=== PATIENT | male | born 1940 | race Two or more races ===

== ENCOUNTER 2021-08-05 17:52 | Inpatient (IN) | payer BC ==
[~2021-08-05] VITALS: Ht 165.1 cm; Wt 61.7 kg
[2021-08-05] MEDS ORDERED: CEFEPIME HCL 1 G in IV DEXTROSE 5% 50 ML IV ONE (18:45)
[2021-08-05] MEDS ORDERED: CEFEPIME HCL 1 G VIAL ONE (18:51)
[2021-08-05 18:52] LABS: HEMATOCRIT 47.2 % (36.7-47.1); MEAN CORPUSCULAR HEMOGLOBIN 26.7 uug (23.8-33.4); MEAN CORPUSCULAR VOLUME 79.9 fL (73.0-96.2); PLATELET COUNT (AUTO) 186 K/uL (152-348)
[2021-08-05] MEDS ORDERED: LORA-259 PO (18:53)
[2021-08-05] MEDS ORDERED: VITA-287 PO (18:53)
[2021-08-05] MEDS ORDERED: D3 PO (18:54)
[2021-08-05] MEDS ORDERED: KRIL500C PO (18:54)
[2021-08-05] MEDS ORDERED: EZET10TA15 PO (18:54)
[2021-08-05] MEDS ORDERED: LEVO75TA PO (18:54)
[2021-08-05] MEDS ORDERED: APIX5TAB4 PO (18:54)
[2021-08-05] MEDS ORDERED: ONDA4TAB5 PO (18:54)
[2021-08-05] MEDS ORDERED: GLUC1TAB9 PO (18:54)
[2021-08-05] MEDS ORDERED: IBUP-1957 PO (18:54)
[2021-08-05] MEDS ORDERED: THIAZIDE PO (18:54)
[2021-08-05] MEDS ORDERED: MECL-225 PO (18:54)
[2021-08-05] MEDS ORDERED: NITR0.4T48 SL (18:54)
[2021-08-05] MEDS ORDERED: MULT-1201 PO (18:54)
[2021-08-05] MEDS ORDERED: NYST15CR2 TP (18:54)
[2021-08-05] MEDS ORDERED: NAPR220C15 PO (18:54)
[2021-08-05] MEDS ORDERED: SOTA80TA PO (18:54)
[2021-08-05] MEDS ORDERED: ENAL20TA70 PO (18:54)
[2021-08-05] MEDS ORDERED: GUAI1TBM19 PO (18:54)
[2021-08-05] MEDS ORDERED: POTASSIUM CL (18:54)
[2021-08-05] MEDS ORDERED: PSYL0.5211 PO (18:54)
[2021-08-05] MEDS ORDERED: VANCOMYCIN IV 1,000 MG in IV DEXTROSE 5% 250 ML IV ONE (19:00)
[2021-08-05] MEDS ORDERED: IV NORMAL SALINE 1000 ML BAG IV ONE (19:00)
[2021-08-05] MEDS ORDERED: DOXYCYCLINE HYCLATE IV 100 MG in IV DEXTROSE 5% 100 ML IV ONE (19:00)
[2021-08-05 19:04] LABS: CREATININE 1.1 mg/dL (0.6-1.3); POTASSIUM 3.5 mmol/L (3.5-5.1)
--- NOTE | 2021-08-05 19:05 | NUR ---
RECEIVED REPORT FROM RJ LIZ.
[2021-08-05 19:09] LABS: BILIRUBIN,TOTAL 0.9 mg/dL (0.2-1.0); TOTAL PROTEIN, SERUM 7.6 g/dL (6.4-8.2)
[2021-08-05 19:29] LABS: BILIRUBIN,DIRECT 0.3 mg/dL (0.0-0.2); BILIRUBIN,TOTAL 0.9 mg/dL (0.2-1.0); MAGNESIUM 1.5 mg/dL (1.8-2.4); PHOSPHOROUS 3.3 mg/dL (2.5-4.9)
[2021-08-05 19:31] LABS: THYROID STIMULATING HORMONE 0.547 mIU/mL (0.358-3.740)
[2021-08-05] MEDS ORDERED: DOXYCYCLINE HYCLATE 100 MG INJ IV ONE (19:37)
[2021-08-05] MEDS ORDERED: VANCOMYCIN IV 200 ML ONE (19:37)
[2021-08-05] MEDS ORDERED: ACETAMINOPHEN 650 MG SUPP.RECT RC ONE (20:30)
[2021-08-05] MEDS ORDERED: ACETAMINOPHEN ES 500 MG TABLET PO ONE (20:30)
[2021-08-05] MEDS ORDERED: ACETAMINOPHEN ES 500 MG TABLET ONE (20:34)
[2021-08-05] MEDS ORDERED: MAGNESIUM SULFATE/D5W 200 ML ONE (20:35)
[2021-08-05] MEDS: MAGNESIUM SULFATE/D5W 100 ML IV SCH ×2 (20:35→21:25)
--- NOTE | 2021-08-05 20:51 | NUR ---
Patient is resting comfortably in bed with eyes closed.
[2021-08-05 20:53] LABS: *BILIRUBIN,URIN NEGATIVE (NEGATIVE); *BLOOD, URINE 2+ (NEGATIVE); *COLOR,URINE YELLOW (YELLOW); *KETONES,URINE NEGATIVE (NEGATIVE); *UROBILINOGEN,URINE 0.2 E.U./dl (NORMAL); LEUKOCYTE ESTERASE ,URINE 1+ (NEGATIVE); NITRITE, URINE POSITIVE (NEGATIVE); PH,URINE 5.5 (5.0-8.0); UGLUCOSE NEGATIVE (NEGATIVE)
[2021-08-05 20:58] LABS: *CLARITY,URINE SLIGHTLY CLOUDY (CLEAR); BACTERIA,URINE FEW /HPF (NONE SEEN); RBC,URINE 50-80 /HPF (0-3); SQUAMOUS EPITHELIAL CELL,UR FEW /HPF (NONE SEEN); WBC,URINE 20-50 /HPF (0-3)
[2021-08-05] MEDS ORDERED: Z GUARD REMEDY PASTE 57 GM TUBE TOP PRN (21:00)
[2021-08-05] MEDS ORDERED: ONDANSETRON 4 MG/2 ML VIAL IV PRN (21:00)
[2021-08-05] MEDS ORDERED: MAGNESIUM HYDROXIDE 30 ML LIQUID UDC PO PRN (21:00)
--- NOTE | 2021-08-05 21:59 | NUR ---
GAVE REPORT TO RJ BOYKIN.
--- NOTE | 2021-08-05 22:30 | NUR ---
Pt. admitted to TELE 302 , under care of Dr. JULIO DX: SEPSIS/PNA Belongs List completed
[2021-08-05 22:45] VITALS: BP 130/73
[2021-08-05] MEDS ORDERED: PIPERACILLIN/TAZOBACTAM/D5W 100 ML IV ONE (23:19)
[2021-08-05] MEDS: PIPERACILLIN SODIUM/TAZOBACTAM 3.375 G in IV DEXTROSE 5% 50 ML IV SCH (23:30)
[2021-08-05] MEDS: IV NS 1000 ML 1,000 ML IV PRN (23:31)
--- NOTE | 2021-08-06 01:00 | NUR ---
referred pt to Dr Santos regarding pt's urine being hematuric; pt initially placed on condom cath but pt removed it; also pt has been uncooperative and pulling lines; mittens ordered;
[2021-08-06 04:00] VITALS: BP_SYST 127; BP_SYST 173; BP_DIAS 60; BP_DIAS 91
[2021-08-06] MEDS: PIPERACILLIN SODIUM/TAZOBACTAM 3.375 G in IV DEXTROSE 5% 50 ML IV SCH (05:06)
[2021-08-06] MEDS: LEVOTHYROXINE SODIUM 75 MCG TABLET PO SCH (05:59)
[2021-08-06] MEDS: ONDANSETRON HCL 4 MG TABLET PO SCH ×3 (05:59→11:01)
[2021-08-06 06:48] LABS: HEMATOCRIT 41.3 % (36.7-47.1); MEAN CORPUSCULAR HEMOGLOBIN 26.8 uug (23.8-33.4); MEAN CORPUSCULAR VOLUME 80.1 fL (73.0-96.2); PLATELET COUNT (AUTO) 153 K/uL (152-348)
[2021-08-06 07:09] LABS: PHOSPHOROUS 3.4 mg/dL (2.5-4.9); POTASSIUM 3.2 mmol/L (3.5-5.1)
--- NOTE | 2021-08-06 07:11 | NUR ---
PT RESTED W3ELL IN BETWEEN CARE; NO ACUTE DISTRESS; SAFETY MAINTAINED; TB SKIN TEST ENDORSED TO NURSE MENDEL TO FOLLOW UP
[2021-08-06] MEDS ORDERED: VANCOMYCIN IV 750 MG in IV DEXTROSE 5% 250 ML IV SCH (08:00)
[2021-08-06] MEDS: MECLIZINE HCL 12.5 MG TABLET PO SCH ×3 (08:02→16:13)
[2021-08-06] MEDS: LORAZEPAM 1 MG TABLET PO SCH (08:02)
[2021-08-06] MEDS: EZETIMIBE 10 MG TABLET PO SCH (08:02)
[2021-08-06] MEDS: APIXABAN 5 MG TABLET PO SCH ×2 (08:03→20:08)
[2021-08-06] MEDS ORDERED: POTASSIUM CHLORIDE 20 MEQ TAB.PRT.SR PO ONE (10:30)
[2021-08-06 12:00] VITALS: BP 117/63
[2021-08-06] MEDS ORDERED: PIPERACILLIN SODIUM/TAZOBACTAM 3.375 G in IV DEXTROSE 5% 50 ML IV SCH (12:00)
[2021-08-06] MEDS: PIPERACILLIN SODIUM/TAZOBACTAM 3.375 G in IV DEXTROSE 5% 100 ML IV SCH ×2 (13:10→21:10)
[2021-08-06] MEDS: ACETAMINOPHEN 325 MG TABLET PO PRN (15:56)
[2021-08-06 16:00] VITALS: BP 132/62
[2021-08-06] MEDS: ENSURE ENLIVE (VAN) 240 ML LIQUID PO SCH (16:14)
[2021-08-06] MEDS: IV NS 1000 ML 1,000 ML IV PRN (16:16)
[2021-08-06 20:00] VITALS: BP 130/74
--- NOTE | 2021-08-06 21:21 | NUR ---
Zosyn IV 25ml/hr 100ml changed to Merrem IV per Vaughn RESERVE OFFICER
[2021-08-06] MEDS ORDERED: MEROPENEM 0.5 G in IV NORMAL SALINE 50 ML IV SCH (22:00)
[2021-08-06] MEDS ORDERED: MEROPENEM 500 MG VIAL IV ONE (23:05)
[2021-08-06] MEDS: MEROPENEM 0.5 G in IV NORMAL SALINE 50 ML IV SCH (23:37)
[2021-08-07 04:14] VITALS: BP 133/72
[2021-08-07] MEDS: MEROPENEM 0.5 G in IV NORMAL SALINE 50 ML IV SCH ×4 (06:00→23:01)
--- NOTE | 2021-08-07 06:46 | NUR ---
Pt asleep at this time, no s/s of distress, no change in LOC. Meds administered as ordered. Kept clean, dry and comfortable. Needs attended to in a timely manner. Safety precautions in place. Frequent checks done to ensure safety.
[2021-08-07 07:30] LABS: HEMATOCRIT 39.5 % (36.7-47.1); MEAN CORPUSCULAR HEMOGLOBIN 26.9 uug (23.8-33.4); MEAN CORPUSCULAR VOLUME 79.6 fL (73.0-96.2); PLATELET COUNT (AUTO) 144 K/uL (152-348)
[2021-08-07] MEDS: LEVOTHYROXINE SODIUM 75 MCG TABLET PO SCH (07:40)
[2021-08-07 07:49] LABS: POTASSIUM 3.5 mmol/L (3.5-5.1)
[2021-08-07] MEDS: LORAZEPAM 1 MG TABLET PO SCH (08:00)
[2021-08-07] MEDS: EZETIMIBE 10 MG TABLET PO SCH (08:00)
[2021-08-07] MEDS: MECLIZINE HCL 12.5 MG TABLET PO SCH ×3 (08:00→16:07)
[2021-08-07] MEDS: APIXABAN 5 MG TABLET PO SCH ×2 (08:01→20:08)
[2021-08-07] MEDS: ENSURE ENLIVE (VAN) 240 ML LIQUID PO SCH ×2 (08:54→16:35)
[2021-08-07 09:11] LABS: MAGNESIUM 1.8 mg/dL (1.8-2.4); PHOSPHOROUS 2.5 mg/dL (2.5-4.9)
[2021-08-07 11:51] VITALS: BP 116/54
[2021-08-07] MEDS: IV NS 1000 ML 1,000 ML IV PRN (13:35)
[2021-08-07 15:40] VITALS: BP 146/67
[2021-08-07] MEDS: ACETAMINOPHEN 325 MG TABLET PO PRN (16:04)
[2021-08-07 20:00] VITALS: BP 138/77
[2021-08-08 00:13] VITALS: BP 128/79
[2021-08-08] MEDS ORDERED: OLANZAPINE 10 MG VIAL IM ONE (00:45)
--- NOTE | 2021-08-08 01:01 | NUR ---
pt is very restless and pulling the iv with mouth removing the radha driscoll made aware new orders received noted and carried out.
[2021-08-08] MEDS: IV NS 1000 ML 1,000 ML IV PRN (03:54)
[2021-08-08 04:34] VITALS: BP 140/70
[2021-08-08] MEDS: LEVOTHYROXINE SODIUM 75 MCG TABLET PO SCH (06:03)
--- NOTE | 2021-08-08 08:00 | NUR ---
No bleeding noted. Pt sleeping released restraints. IV intact.
[2021-08-08] MEDS: MECLIZINE HCL 12.5 MG TABLET PO SCH ×3 (08:23→16:13)
[2021-08-08] MEDS: EZETIMIBE 10 MG TABLET PO SCH (08:23)
[2021-08-08] MEDS: ENSURE ENLIVE (VAN) 240 ML LIQUID PO SCH ×2 (08:24→17:00)
[2021-08-08] MEDS: LORAZEPAM 1 MG TABLET PO SCH (08:24)
[2021-08-08] MEDS: APIXABAN 5 MG TABLET PO SCH (08:24)
[2021-08-08] MEDS: MEROPENEM 0.5 G in IV NORMAL SALINE 50 ML IV SCH ×3 (08:25→16:13)
[2021-08-08 11:52] LABS: HEMATOCRIT 36.4 % (36.7-47.1); MEAN CORPUSCULAR HEMOGLOBIN 26.9 uug (23.8-33.4); MEAN CORPUSCULAR VOLUME 79.7 fL (73.0-96.2); PLATELET COUNT (AUTO) 162 K/uL (152-348)
[2021-08-08 12:02] LABS: CREATININE 0.8 mg/dL (0.6-1.3); POTASSIUM 3.5 mmol/L (3.5-5.1)
[2021-08-08] MEDS ORDERED: LEVO500T90 PO (12:08)
[2021-08-08 12:55] VITALS: BP 104/66
--- NOTE | 2021-08-08 15:00 | NUR ---
CM verified with pt's significant other MAURICE that pt is very forgetful and confused and that he is able to take care of patient with home health.
--- NOTE | 2021-08-08 16:26 | NUR ---
Verified E prescription if it went through pt's [facility] @ [place]. PEr pharmacist at [facility] no e prescription was received. Spoke with pt's significant other MAURICE and verified that they go to [facility] along [address]. IV taken out on right hand. PT is in no acute distress. No bleeding noted. Skin is intact. Discuss discharge instructions with MAURICE secondary to pt is very forgetfull and confused. PT is to go home with home health . Addendum: 08/08/21 at 1831 by TIANAR ROSELINE DE LA ROSA Called in prescription for Levaquin to pt preferred pharmacist.
--- NOTE | 2021-08-08 17:00 | NUR ---
Pt is in no acute distress. Discharge instruction given to pt and SHA. Sha verbalized understanding. IV taken out. No Valuables to be given back. Pt to f/u with PMD within 1 week.
== END 2021-08-08 16:50 | disposition home health service (06) | DRG 871 ==
LOC: ER 17:55 → TELE3 22:20 → MEDSURG3 08-06 17:15
PROVIDERS: ADMIT Internal Medicine; ATTEND Internal Medicine
DX: A41.9 Sepsis, unspecified organism (principal); E43 Unspecified severe protein-calorie malnutrition; G93.41 Metabolic encephalopathy; N39.0 Urinary tract infection, site not specified; E87.1 Hypo-osmolality and hyponatremia; E83.42 Hypomagnesemia; E03.9 Hypothyroidism, unspecified; E87.6 Hypokalemia; E78.5 Hyperlipidemia, unspecified; F03.90 Unspecified dementia, unspecified severity, without behavioral disturbance, psychotic disturbance, mood disturbance, and anxiety; F32.A Depression, unspecified; F41.9 Anxiety disorder, unspecified; I10 Essential (primary) hypertension; I25.10 Atherosclerotic heart disease of native coronary artery without angina pectoris; I48.0 Paroxysmal atrial fibrillation; Z79.01 Long term (current) use of anticoagulants; Z79.890 Hormone replacement therapy; Z20.822 Contact with and (suspected) exposure to COVID-19; E88.09 Other disorders of plasma-protein metabolism, not elsewhere classified; Z68.22 Body mass index [BMI] 22.0-22.9, adult; R53.1 Weakness
CPT/HCPCS: 36415; 70030-TC; 70450; 71045; 83605; 83690; 83735; 84100; 84443; 85025; 87040; 87086; 93005; A4663; A9150; C1758; G0378; J0692; J2185; J2358; J2543; J3370; J3475; J3490; J7030; J7050; J7060; J8597; Q0162

== ENCOUNTER 2022-10-30 00:23 | Inpatient (IN) | payer BC ==
[~2022-10-30] VITALS: Ht 172.7 cm; Wt 68.0 kg
[~2022-10-30 00:23] MED LIST: APIX5TAB4 PO; D3 PO; ENAL20TA70 PO; EZET10TA15 PO; GLUC1TAB9 PO; GUAI1TBM19 PO; IBUP-1957 PO; KRIL500C PO; LEVO500T90 PO; LEVO75TA PO; LORA-259 PO; MECL-225 PO; MULT-1201 PO; NAPR220C15 PO; NITR0.4T48 SL; NYST15CR2 TP; ONDA4TAB5 PO; POTASSIUM CL; PSYL0.5211 PO; SOTA80TA PO; THIAZIDE PO; VITA-287 PO
--- NOTE | 2022-10-30 00:35 | NUR ---
PT has altered mental staus, unable to answer any questions.
[2022-10-30] MEDS ORDERED: TRIA1CAP6 PO (00:39)
[2022-10-30] MEDS ORDERED: DONE10TA44 PO (00:39)
[2022-10-30] MEDS ORDERED: POLY17PO4 PO (00:39)
[2022-10-30] MEDS ORDERED: ROSU40TA PO (00:39)
[2022-10-30] MEDS ORDERED: LEVO88TA5 PO (00:39)
[2022-10-30] MEDS ORDERED: DOCU100C36 PO (00:39)
[2022-10-30] MEDS ORDERED: IV NORMAL SALINE 1000 ML BAG IV ONE (01:00)
[2022-10-30 01:39] LABS: HEMATOCRIT 40.8 % (36.7-47.1); MEAN CORPUSCULAR HEMOGLOBIN 26.1 uug (23.8-33.4); MEAN CORPUSCULAR VOLUME 79.4 fL (73.0-96.2); PLATELET COUNT (AUTO) 226 K/uL (152-348)
[2022-10-30 01:49] LABS: CARBON DIOXIDE 27 mmol/L (21-32); CHLORIDE 99 mmol/L (98-107); CREATININE 1.1 mg/dL (0.6-1.3); GLUCOSE 280 mg/dL (74-106); POTASSIUM 2.9 mmol/L (3.5-5.1); UREA NITROGEN, BLOOD 9 mg/dL (7-18)
[2022-10-30 01:58] LABS: ALKALINE PHOSPHATASE 84 U/L (50-136); ASPARTATE AMINOTRANSFERASE 55 U/L (15-37); BILIRUBIN,DIRECT 0.1 mg/dL (0.0-0.2); BILIRUBIN,TOTAL 0.3 mg/dL (0.2-1.0); TOTAL PROTEIN, SERUM 6.6 g/dL (6.4-8.2)
[2022-10-30 02:00] LABS: ALANINE AMINOTRANSFERASE < 6 U/L (16-63)
--- NOTE | 2022-10-30 02:00 | NUR ---
PT is now responsive to name but still unable to answer questions such as date of , where he is, etc.
[2022-10-30] MEDS ORDERED: POTASSIUM CHLORIDE 200 ML ONE (02:04)
[2022-10-30] MEDS: POTASSIUM CHLORIDE 50 ML IV SCH ×4 (02:10→05:00)
[2022-10-30 02:14] LABS: *BILIRUBIN,URIN NEGATIVE (NEGATIVE); *BLOOD, URINE 3+ (NEGATIVE); *CLARITY,URINE SLIGHTLY CLOUDY (CLEAR); *COLOR,URINE YELLOW (YELLOW); *KETONES,URINE 1+ (NEGATIVE); *UROBILINOGEN,URINE 0.2 E.U./dl (NORMAL); LEUKOCYTE ESTERASE ,URINE 1+ (NEGATIVE); NITRITE, URINE POSITIVE (NEGATIVE); PH,URINE 5.5 (5.0-8.0); UGLUCOSE TRACE (NEGATIVE)
[2022-10-30] MEDS ORDERED: IV NS 1000 ML 1,000 ML IV ONE (02:15)
[2022-10-30 02:20] LABS: MAGNESIUM 1.7 mg/dL (1.8-2.4)
[2022-10-30 02:42] LABS: BACTERIA,URINE FEW /HPF (NONE SEEN); RBC,URINE 80-100 /HPF (0-3); SQUAMOUS EPITHELIAL CELL,UR FEW /HPF (NONE SEEN)
[2022-10-30] MEDS ORDERED: CEFTRIAXONE 1 G in IV DEXTROSE 5% 50 ML IV ONE (03:45)
--- NOTE | 2022-10-30 03:49 | NUR ---
Called [facility] to page Dr. Saunders.
--- NOTE | 2022-10-30 04:10 | NUR ---
kcl 50 ml completed
[2022-10-30] MEDS ORDERED: MAGNESIUM SULFATE/D5W 200 ML ONE (04:12)
[2022-10-30] MEDS ORDERED: CEFTRIAXONE /D5W 50ML IVPB **ER PYXIS IV ONE (04:12)
[2022-10-30] MEDS ORDERED: [UNRECOGNIZED DRUG - OTHER] PO SCH (05:00)
[2022-10-30] MEDS ORDERED: MORPHINE SULFATE 2 MG/1 ML DISP.SYRIN IVP PRN (05:00)
[2022-10-30] MEDS ORDERED: HALOPERIDOL LACTATE 5 MG/1 ML VIAL IV ONE (05:00)
[2022-10-30] MEDS ORDERED: hydrALAZINE HCL 20 MG/1 ML VIAL IV PRN (05:00)
[2022-10-30] MEDS ORDERED: NITROGLYCERIN 0.4 MG/TAB BOTTLE SL PRN (05:00)
[2022-10-30] MEDS ORDERED: ONDANSETRON 4 MG/2 ML VIAL IV PRN (05:00)
--- NOTE | 2022-10-30 05:13 | NUR ---
Report given RJ Garcia.
[2022-10-30] MEDS: MAGNESIUM SULFATE/D5W 100 ML IV SCH ×2 (05:30→07:09)
--- NOTE | 2022-10-30 05:45 | NUR ---
Pt. admitted to TELE rm 309, under care of Dr. Saunders. Belongs List completed RJ Garcia aware of pt's arrival to unit.
[2022-10-30 06:30] VITALS: BP 127/74
[2022-10-30] MEDS: LEVOTHYROXINE SODIUM 88 MCG TABLET PO SCH (07:11)
[2022-10-30 07:30] VITALS: BP 127/76
--- NOTE | 2022-10-30 07:43 | NUR ---
At time of shift change no return call from Md del cid Pt"s Bradycardia. Report endorsed to oncoming RN
--- NOTE | 2022-10-30 07:55 | NUR ---
Patient brought to floor at 0545 Awake alert x1 Made comfortable Magnesium infusing Call placedt to MD re Bradycardia.
[2022-10-30] MEDS: IV NS 1000 ML 1,000 ML IV PRN (08:23)
[2022-10-30] MEDS: MULTIVITAMINS,THERAPEUTIC TABLET PO SCH (08:34)
[2022-10-30] MEDS: CHOLECALCIFEROL 1,000 UNIT TABLET PO SCH (08:34)
[2022-10-30] MEDS: DOCUSATE SODIUM 100 MG CAPSULE PO SCH ×2 (08:34→16:47)
[2022-10-30] MEDS: MECLIZINE HCL 12.5 MG TABLET PO SCH ×3 (08:35→16:47)
[2022-10-30] MEDS: APIXABAN 5 MG TABLET PO SCH ×2 (08:35→21:31)
[2022-10-30] MEDS: MIRALAX 17 GM POWD.PACK PO SCH (08:35)
[2022-10-30] MEDS: VITAMIN B COMPLEX 1 TABLET PO SCH (08:39)
[2022-10-30] MEDS: SOTALOL HCL 80 MG TABLET PO SCH ×2 (08:39→21:00)
[2022-10-30] MEDS ORDERED: KRILL OIL 500 MG PO SCH (09:00)
[2022-10-30] MEDS ORDERED: MSM PO SCH (09:00)
[2022-10-30] MEDS ORDERED: Medication Not On Formulary EA (Multivitamin/Iron/Folic Acid (Centrum Adults Tablet) 1 E PO SCH (09:00)
[2022-10-30] MEDS ORDERED: [UNRECOGNIZED DRUG - OTHER] PO SCH (09:00)
[2022-10-30] MEDS ORDERED: Medication Not On Formulary EA (Apixaban (Eliquis) 5 MG) PO SCH (09:00)
[2022-10-30] MEDS ORDERED: GLUCOSAMINE HCL PO SCH (09:00)
[2022-10-30] MEDS ORDERED: Rosuvastatin Calcium (Crestor) 1 TAB) PO SCH (09:00)
[2022-10-30] MEDS ORDERED: [UNRECOGNIZED DRUG - OTHER] PO SCH (09:00)
[2022-10-30] MEDS ORDERED: LORAZEPAM 1 MG TABLET PO SCH (09:00)
[2022-10-30] MEDS ORDERED: HEPARIN SODIUM,PORCINE 5,000 UNITS/ML VIAL SQ SCH (09:00)
--- NOTE | 2022-10-30 09:00 | NUR ---
Hospitalist here to see patient. Pt alert x 1 forgetful. No weakness noted, no drift noted, smile equal. Pt ate 50% of his breakfast. IVF infusing as ordered on left forearm. Noted bruising on right arm and right leg. Pt denies any c/o pain. reorient pt to time and place. Aspiration and fall precautions implemented. .
[2022-10-30 13:49] VITALS: BP 114/64
[2022-10-30 15:35] VITALS: BP 143/70
--- NOTE | 2022-10-30 18:20 | NUR ---
Pt is in no acute distress. Call light is within reach. Spoke with family members to [place] and clarified meds . Family to bring pt's advance directives.
[2022-10-30 20:00] VITALS: BP 128/87
[2022-10-30] MEDS: DONEPEZIL 10 MG TABLET PO SCH (21:31)
[2022-10-31] VITALS: BP 111/88
[2022-10-31 04:00] VITALS: BP 121/84
[2022-10-31] MEDS: CEFTRIAXONE 1 G in IV DEXTROSE 5% 50 ML IV SCH (04:45)
[2022-10-31] MEDS: LEVOTHYROXINE SODIUM 88 MCG TABLET PO SCH (05:46)
[2022-10-31 07:24] LABS: HEMATOCRIT 37.8 % (36.7-47.1); MEAN CORPUSCULAR HEMOGLOBIN 26.1 uug (23.8-33.4); MEAN CORPUSCULAR VOLUME 78.5 fL (73.0-96.2); PLATELET COUNT (AUTO) 217 K/uL (152-348)
[2022-10-31 07:45] LABS: BILIRUBIN,TOTAL 0.3 mg/dL (0.2-1.0); CREATININE 0.7 mg/dL (0.6-1.3); PHOSPHOROUS 2.7 mg/dL (2.5-4.9); POTASSIUM 2.9 mmol/L (3.5-5.1); TOTAL PROTEIN, SERUM 6.3 g/dL (6.4-8.2)
[2022-10-31 08:18] LABS: THYROID STIMULATING HORMONE 2.076 mIU/mL (0.358-3.740)
[2022-10-31] MEDS: CHOLECALCIFEROL 1,000 UNIT TABLET PO SCH (08:19)
[2022-10-31] MEDS: MECLIZINE HCL 12.5 MG TABLET PO SCH ×3 (08:19→18:01)
[2022-10-31] MEDS: MULTIVITAMINS,THERAPEUTIC TABLET PO SCH (08:19)
[2022-10-31] MEDS: MIRALAX 17 GM POWD.PACK PO SCH (08:20)
[2022-10-31] MEDS: DOCUSATE SODIUM 100 MG CAPSULE PO SCH ×2 (08:20→18:01)
[2022-10-31] MEDS: APIXABAN 5 MG TABLET PO SCH ×2 (08:20→21:31)
[2022-10-31] MEDS: VITAMIN B COMPLEX 1 TABLET PO SCH (08:35)
[2022-10-31] MEDS: SOTALOL HCL 80 MG TABLET PO SCH ×2 (08:35→21:30)
[2022-10-31 11:34] VITALS: BP 131/91
[2022-10-31] MEDS: POTASSIUM CHLORIDE 10 MEQ TAB.PRT.SR PO SCH ×2 (11:41→14:24)
[2022-10-31] MEDS: IV NS 1000 ML 1,000 ML IV PRN (12:00)
[2022-10-31 16:00] VITALS: BP 118/81
[2022-10-31 20:52] VITALS: BP 115/89
[2022-10-31] MEDS: DONEPEZIL 10 MG TABLET PO SCH (21:29)
[2022-10-31] MEDS: ROSUVASTATIN 40 MG PO SCH (21:32)
[2022-10-31] MEDS: [UNRECOGNIZED DRUG - OTHER] PO SCH (21:32)
[2022-11-01 00:23] VITALS: BP 137/71
[2022-11-01] MEDS: IV NS 1000 ML 1,000 ML IV PRN (00:44)
[2022-11-01] MEDS: CEFTRIAXONE 1 G in IV DEXTROSE 5% 50 ML IV SCH (04:38)
[2022-11-01] MEDS: LEVOTHYROXINE SODIUM 88 MCG TABLET PO SCH (06:03)
[2022-11-01 06:41] LABS: HEMATOCRIT 38.7 % (36.7-47.1); MEAN CORPUSCULAR HEMOGLOBIN 26.6 uug (23.8-33.4); MEAN CORPUSCULAR VOLUME 79.3 fL (73.0-96.2); PLATELET COUNT (AUTO) 250 K/uL (152-348)
[2022-11-01 07:06] LABS: CREATININE 0.8 mg/dL (0.6-1.3); MAGNESIUM 1.6 mg/dL (1.8-2.4); PHOSPHOROUS 2.7 mg/dL (2.5-4.9); POTASSIUM 3.6 mmol/L (3.5-5.1)
[2022-11-01] MEDS: APIXABAN 5 MG TABLET PO SCH ×2 (08:38→21:21)
[2022-11-01] MEDS: DOCUSATE SODIUM 100 MG CAPSULE PO SCH ×2 (08:38→16:29)
[2022-11-01] MEDS: MECLIZINE HCL 12.5 MG TABLET PO SCH ×3 (08:38→16:29)
[2022-11-01] MEDS: CHOLECALCIFEROL 1,000 UNIT TABLET PO SCH (08:38)
[2022-11-01] MEDS: MULTIVITAMINS,THERAPEUTIC TABLET PO SCH (08:38)
[2022-11-01] MEDS: MIRALAX 17 GM POWD.PACK PO SCH (08:39)
[2022-11-01] MEDS: TRIAMTERENE/HCTZ 75-50 MG TABLET PO SCH (08:54)
[2022-11-01] MEDS: SOTALOL HCL 80 MG TABLET PO SCH ×2 (08:57→21:19)
[2022-11-01] MEDS: VITAMIN B COMPLEX 1 TABLET PO SCH (08:58)
[2022-11-01] MEDS: MAGNESIUM SULFATE/D5W 100 ML IV SCH ×2 (10:58→12:00)
[2022-11-01 12:00] VITALS: BP_SYST 116; BP_SYST 124; BP_DIAS 56; BP_DIAS 80
--- NOTE | 2022-11-01 14:00 | NUR ---
Urine culture follow up. Per construction craft laborer no result yet. Micro- Results should be in "tomorrow."
[2022-11-01 16:03] VITALS: BP 127/80
--- NOTE | 2022-11-01 17:51 | NUR ---
Pt repositioned for comfort pt was incontinent with urine. Pt denies any c/o pain. Bed alarm on. Pt denies any c/o pain.
[2022-11-01 20:00] VITALS: BP 116/77
[2022-11-01] MEDS: ROSUVASTATIN 40 MG PO SCH (21:18)
[2022-11-01] MEDS: DONEPEZIL 10 MG TABLET PO SCH (21:18)
[2022-11-01] MEDS: [UNRECOGNIZED DRUG - OTHER] PO SCH (21:18)
[2022-11-02] VITALS: BP 110/70
[2022-11-02] MEDS: CEFTRIAXONE 1 G in IV DEXTROSE 5% 50 ML IV SCH (04:21)
[2022-11-02 05:55] VITALS: BP 134/77
[2022-11-02] MEDS: LEVOTHYROXINE SODIUM 88 MCG TABLET PO SCH (06:32)
[2022-11-02 07:19] LABS: POTASSIUM 3.5 mmol/L (3.5-5.1)
--- NOTE | 2022-11-02 08:00 | NUR ---
awake and in bed, oriented to self only but follows commands, no distress noted, tele 57, denies of pain, bruising on arms and legs noted, fall precautions and aspiration precautions observed
[2022-11-02] MEDS: MECLIZINE HCL 12.5 MG TABLET PO SCH ×3 (08:29→17:07)
[2022-11-02] MEDS: CHOLECALCIFEROL 1,000 UNIT TABLET PO SCH (08:30)
[2022-11-02] MEDS: DOCUSATE SODIUM 100 MG CAPSULE PO SCH ×2 (08:30→17:07)
[2022-11-02] MEDS: MULTIVITAMINS,THERAPEUTIC TABLET PO SCH (08:30)
[2022-11-02] MEDS: APIXABAN 5 MG TABLET PO SCH ×2 (08:31→20:16)
[2022-11-02] MEDS: MIRALAX 17 GM POWD.PACK PO SCH (08:31)
[2022-11-02] MEDS: VITAMIN B COMPLEX 1 TABLET PO SCH (08:33)
[2022-11-02] MEDS: SOTALOL HCL 80 MG TABLET PO SCH ×2 (08:34→20:18)
--- NOTE | 2022-11-02 11:30 | NUR ---
seen by hospitalist, for psych consult for dementia-Dr Zaragoza almond roaster for Dr Carter will follow pst
[2022-11-02 11:43] VITALS: BP 127/77
--- NOTE | 2022-11-02 12:00 | NUR ---
seen by Dr Zaragoza- no orders given
[2022-11-02 15:42] VITALS: BP 89/65
[2022-11-02] MEDS ORDERED: MULT-24 PO (15:51)
[2022-11-02] MEDS ORDERED: CEPH500C2 PO (15:51)
[2022-11-02] MEDS ORDERED: CHOL100062 PO (15:51)
[2022-11-02 17:43] VITALS: BP 96/64
--- NOTE | 2022-11-02 18:34 | NUR ---
no acute distress noted, no agitation noted, female visitor here earlier, fed with meals by SHELTER DIRECTOR- appetite fair, aspiration and fall precaution observed, tele SR, all needs attended and met, bed alarm on
[2022-11-02 20:00] VITALS: BP 116/85
[2022-11-02] MEDS: ROSUVASTATIN 40 MG PO SCH (20:16)
[2022-11-02] MEDS: [UNRECOGNIZED DRUG - OTHER] PO SCH (20:16)
[2022-11-02] MEDS: DONEPEZIL 10 MG TABLET PO SCH (20:18)
[2022-11-03] VITALS: BP 135/72
[2022-11-03 04:00] VITALS: BP 122/67
[2022-11-03] MEDS: CEFTRIAXONE 1 G in IV DEXTROSE 5% 50 ML IV SCH (05:08)
[2022-11-03] MEDS: LEVOTHYROXINE SODIUM 88 MCG TABLET PO SCH (06:11)
[2022-11-03] MEDS: CHOLECALCIFEROL 1,000 UNIT TABLET PO SCH (09:55)
[2022-11-03] MEDS: DOCUSATE SODIUM 100 MG CAPSULE PO SCH ×2 (09:55→16:19)
[2022-11-03] MEDS: MIRALAX 17 GM POWD.PACK PO SCH (09:55)
[2022-11-03] MEDS: MECLIZINE HCL 12.5 MG TABLET PO SCH ×3 (09:56→16:19)
[2022-11-03] MEDS: APIXABAN 5 MG TABLET PO SCH ×2 (09:57→21:11)
[2022-11-03] MEDS: MULTIVITAMINS,THERAPEUTIC TABLET PO SCH (10:03)
[2022-11-03] MEDS: ACETAMINOPHEN 325 MG TABLET PO PRN (10:03)
[2022-11-03] MEDS: VITAMIN B COMPLEX 1 TABLET PO SCH (10:03)
[2022-11-03] MEDS: SOTALOL HCL 80 MG TABLET PO SCH ×2 (10:03→21:19)
[2022-11-03 11:38] VITALS: BP 120/80
[2022-11-03] MEDS: MEROPENEM 0.5 G in IV NORMAL SALINE 50 ML IV SCH ×2 (14:00→22:11)
[2022-11-03 15:59] VITALS: BP 130/79
[2022-11-03 20:00] VITALS: BP 109/76
[2022-11-03] MEDS: DONEPEZIL 10 MG TABLET PO SCH (21:19)
[2022-11-03] MEDS: [UNRECOGNIZED DRUG - OTHER] PO SCH (21:23)
[2022-11-03] MEDS: ROSUVASTATIN 40 MG PO SCH (21:23)
[2022-11-04] VITALS: BP 138/68
[2022-11-04 04:00] VITALS: BP 136/68
[2022-11-04] MEDS: MEROPENEM 0.5 G in IV NORMAL SALINE 50 ML IV SCH ×3 (06:02→22:10)
[2022-11-04] MEDS: LEVOTHYROXINE SODIUM 88 MCG TABLET PO SCH (06:06)
--- NOTE | 2022-11-04 06:27 | NUR ---
Patient slept intermittently, no noted acute distress. Denies chest pain. Sinus rhythm on tele. IV access to LFA intact and patent. Needs assessed and attended to.
[2022-11-04] MEDS: CHOLECALCIFEROL 1,000 UNIT TABLET PO SCH (09:02)
[2022-11-04] MEDS: VITAMIN B COMPLEX 1 TABLET PO SCH (09:02)
[2022-11-04] MEDS: MIRALAX 17 GM POWD.PACK PO SCH (09:02)
[2022-11-04] MEDS: DOCUSATE SODIUM 100 MG CAPSULE PO SCH ×2 (09:02→17:19)
[2022-11-04] MEDS: MECLIZINE HCL 12.5 MG TABLET PO SCH ×3 (09:02→17:19)
[2022-11-04] MEDS: SOTALOL HCL 80 MG TABLET PO SCH ×2 (09:03→21:47)
[2022-11-04] MEDS: TRIAMTERENE/HCTZ 75-50 MG TABLET PO SCH (09:03)
[2022-11-04] MEDS: APIXABAN 5 MG TABLET PO SCH ×2 (09:06→21:44)
[2022-11-04] MEDS: MULTIVITAMINS,THERAPEUTIC TABLET PO SCH (09:07)
[2022-11-04 11:48] VITALS: BP 170/75
[2022-11-04 15:50] VITALS: BP 137/74
[2022-11-04] MEDS: GLUCERNA SHAKE 237 ML CAN PO SCH (17:19)
[2022-11-04 20:00] VITALS: BP 105/73
[2022-11-04] MEDS: DONEPEZIL 10 MG TABLET PO SCH (21:42)
[2022-11-04] MEDS: [UNRECOGNIZED DRUG - OTHER] PO SCH (21:47)
[2022-11-04] MEDS: ROSUVASTATIN 40 MG PO SCH (21:47)
[2022-11-05] VITALS: BP 99/73
[2022-11-05 04:00] VITALS: BP 125/75
[2022-11-05] MEDS: MEROPENEM 0.5 G in IV NORMAL SALINE 50 ML IV SCH ×3 (05:36→22:00)
[2022-11-05] MEDS: LEVOTHYROXINE SODIUM 88 MCG TABLET PO SCH (06:13)
[2022-11-05 08:00] VITALS: BP 135/66
[2022-11-05] MEDS: GLUCERNA SHAKE 237 ML CAN PO SCH ×2 (08:00→17:00)
[2022-11-05] MEDS: DOCUSATE SODIUM 100 MG CAPSULE PO SCH ×2 (09:28→16:44)
[2022-11-05] MEDS: VITAMIN B COMPLEX 1 TABLET PO SCH (09:28)
[2022-11-05] MEDS: MULTIVITAMINS,THERAPEUTIC TABLET PO SCH (09:28)
[2022-11-05] MEDS: MECLIZINE HCL 12.5 MG TABLET PO SCH ×3 (09:28→16:44)
[2022-11-05] MEDS: SOTALOL HCL 80 MG TABLET PO SCH ×2 (09:28→21:00)
[2022-11-05] MEDS: CHOLECALCIFEROL 1,000 UNIT TABLET PO SCH (09:28)
[2022-11-05] MEDS: MIRALAX 17 GM POWD.PACK PO SCH (09:28)
[2022-11-05] MEDS: APIXABAN 5 MG TABLET PO SCH ×2 (09:29→21:00)
[2022-11-05 11:27] VITALS: BP 119/72
[2022-11-05] MEDS: ACETAMINOPHEN 325 MG TABLET PO PRN (13:17)
[2022-11-05 16:07] VITALS: BP 173/65
[2022-11-05 20:43] VITALS: BP 118/69
[2022-11-05] MEDS: [UNRECOGNIZED DRUG - OTHER] PO SCH (21:00)
[2022-11-05] MEDS: ROSUVASTATIN 40 MG PO SCH (21:00)
[2022-11-05] MEDS: DONEPEZIL 10 MG TABLET PO SCH (21:00)
[2022-11-06 00:47] VITALS: BP 159/80
[2022-11-06 04:11] VITALS: BP 135/82
[2022-11-06] MEDS: MEROPENEM 0.5 G in IV NORMAL SALINE 50 ML IV SCH ×3 (06:00→21:02)
[2022-11-06] MEDS: LEVOTHYROXINE SODIUM 88 MCG TABLET PO SCH (07:33)
--- NOTE | 2022-11-06 07:59 | NUR ---
No critical changes observed in patient. Patient well tolerated her meds, no respiratory distress observed. Slept during the all night. He is awake now, alert but with some confusion. Will continue to monitor patient for safety.
[2022-11-06 08:00] VITALS: BP 124/49
[2022-11-06] MEDS: GLUCERNA SHAKE 237 ML CAN PO SCH ×2 (08:00→16:45)
[2022-11-06] MEDS: VITAMIN B COMPLEX 1 TABLET PO SCH (10:27)
[2022-11-06] MEDS: SOTALOL HCL 80 MG TABLET PO SCH ×2 (10:28→20:51)
[2022-11-06] MEDS: MULTIVITAMINS,THERAPEUTIC TABLET PO SCH (10:29)
[2022-11-06] MEDS: CHOLECALCIFEROL 1,000 UNIT TABLET PO SCH (10:29)
[2022-11-06] MEDS: MIRALAX 17 GM POWD.PACK PO SCH (10:29)
[2022-11-06] MEDS: DOCUSATE SODIUM 100 MG CAPSULE PO SCH ×2 (10:29→16:45)
[2022-11-06] MEDS: MECLIZINE HCL 12.5 MG TABLET PO SCH ×3 (10:29→16:45)
[2022-11-06] MEDS: APIXABAN 5 MG TABLET PO SCH ×2 (10:33→20:52)
[2022-11-06 12:00] VITALS: BP 130/76
[2022-11-06 15:53] VITALS: BP 121/71
[2022-11-06 20:20] VITALS: BP 146/80
[2022-11-06] MEDS: DONEPEZIL 10 MG TABLET PO SCH (20:51)
[2022-11-06] MEDS: [UNRECOGNIZED DRUG - OTHER] PO SCH (20:52)
[2022-11-06] MEDS: ROSUVASTATIN 40 MG PO SCH (20:52)
[2022-11-07 00:09] VITALS: BP 114/78
[2022-11-07 04:12] VITALS: BP 128/85
[2022-11-07] MEDS: MEROPENEM 0.5 G in IV NORMAL SALINE 50 ML IV SCH ×2 (05:28→13:35)
[2022-11-07] MEDS: LEVOTHYROXINE SODIUM 88 MCG TABLET PO SCH (05:28)
--- NOTE | 2022-11-07 06:58 | NUR ---
ALERT WITH FORGETFULNESS. DENIES PAIN. IV/ABT MERREM CONTINUES FOR UTI. APPETITE POOR. OCCASIONALLY DRINKS GLUCERNA SUPPLEMENT. PATIENT REMAINS A FALL RISK. INCONTINENT TO BOWEL AND BLADDER. LARGE BM NOTED 11/06. CURRENTLY RESTING IN BED, SEMI- ARELLANO POSITION. CALL NEGRON WITHIN REACH. BED IN LOW POSITION. BED ALARM IN PLACE. MAUREEN Verma RN
[2022-11-07] MEDS: MULTIVITAMINS,THERAPEUTIC TABLET PO SCH (09:00)
[2022-11-07] MEDS: MECLIZINE HCL 12.5 MG TABLET PO SCH ×3 (09:01→16:55)
[2022-11-07] MEDS: DOCUSATE SODIUM 100 MG CAPSULE PO SCH ×2 (09:01→16:55)
[2022-11-07] MEDS: CHOLECALCIFEROL 1,000 UNIT TABLET PO SCH (09:01)
[2022-11-07] MEDS: VITAMIN B COMPLEX 1 TABLET PO SCH (09:01)
[2022-11-07] MEDS: SOTALOL HCL 80 MG TABLET PO SCH (09:03)
[2022-11-07] MEDS: MIRALAX 17 GM POWD.PACK PO SCH (09:03)
[2022-11-07] MEDS: GLUCERNA SHAKE 237 ML CAN PO SCH ×2 (09:05→16:55)
[2022-11-07] MEDS: APIXABAN 5 MG TABLET PO SCH (09:05)
--- NOTE | 2022-11-07 09:30 | NUR ---
RECEIVED PATIENT IN BED AWAKE ALERT VERBALLY RESPONDS WHEN SPOKEN TO BUT HE IS CONFUSED AND DISORIENTED ALL NEEDS ANTICIPATED AND SATISFIED MAX ASSIST FOR ALL ADL REPOSITIONED FOR COMFORT ON ROOM AIR WITH NO SHORTNESS OF BREATH.REMAIN ON IV ATB ORDERED WITH NO ADVERSE OR ALLERGIC REACTIONS AT THIS TIME.WILL CONTINUE TO OBSERVE
[2022-11-07 11:49] VITALS: BP 114/53
--- NOTE | 2022-11-07 15:00 | NUR ---
PER THE BOX CAR LOADER PATIENT WILL BE DISCHARGED TO [facility] WILL BE PICKED UP BY AMBULANCE AT 1930
[2022-11-07 16:00] VITALS: BP 126/75
--- NOTE | 2022-11-07 18:00 | NUR ---
COVID 19 TEST IS NEGATIVE ORDERED.
--- NOTE | 2022-11-07 20:10 | NUR ---
Picked up by [facility]. Discharge paperwork and home medications of pt endorsed to EMT. All belongings checked and documented. Removed IV on R UA midline. Catheter inspected noted to be complete. Tele box and ID removed. All contraptions removed. Safety measure maintained. Discharged in satisfactory condition.
--- NOTE | 2022-11-08 07:45 | NUR ---
DR ZAVALETA HERE SEEN PATIENT STATED TO PLACE PATIENT ON TELE AND THAT HE WILL ORDER EKG AND ECHO AND AFTER HE REVIEWS ALL WILL THEN SEE IF PATIENT COULD BE CLEARED FOR SURGERY AND NOTED.
--- NOTE | 2022-11-08 08:10 | NUR ---
WRONG ENTRY WRONG PATIENT.
== END 2022-11-07 20:00 | DRG 689 ==
LOC: ER 00:23 → TELE3 03:42
PROVIDERS: ADMIT Nurse Practitioner Acute Care; ATTEND Registered Nurse
PROC: 05H533Z Insertion of Infusion Device into Right Subclavian Vein, Percutaneous Approach (ICD-10-PCS; principal; 2022-11-04)
PROC: B546ZZA Ultrasonography of Right Subclavian Vein, Guidance (ICD-10-PCS; 2022-11-04)
DX: N39.0 Urinary tract infection, site not specified (principal); G93.41 Metabolic encephalopathy; E87.1 Hypo-osmolality and hyponatremia; E03.9 Hypothyroidism, unspecified; E86.0 Dehydration; E87.6 Hypokalemia; I10 Essential (primary) hypertension; I48.0 Paroxysmal atrial fibrillation; K59.00 Constipation, unspecified; Z79.01 Long term (current) use of anticoagulants; F03.90 Unspecified dementia, unspecified severity, without behavioral disturbance, psychotic disturbance, mood disturbance, and anxiety; Z20.822 Contact with and (suspected) exposure to COVID-19; B96.20 Unspecified Escherichia coli [E. coli] as the cause of diseases classified elsewhere; I95.9 Hypotension, unspecified; R73.9 Hyperglycemia, unspecified
CPT/HCPCS: 36415; 70450; 71045; 83605; 83735; 84100; 84443; 84481; 84484; 85025; 93005; A4663; A6213; C1758; G0378; J0696; J2185; J3475; J3480; J7040; J8597